=== PATIENT | female | born 1985 | race African-American/Black ===

== ENCOUNTER 2019-02-04 08:42 | Inpatient (IN) ==
[2019-02-04] MEDS ORDERED: oxyCODONE/ACETAMINOPHEN 5-325 MG TABLET PO PRN (09:07)
[2019-02-04] MEDS ORDERED: ONDANSETRON 4 MG/2 ML VIAL IV PRN (09:07)
[2019-02-04] MEDS ORDERED: LACTATED RINGERS 500 ML IV PRN (09:07)
[2019-02-04] MEDS ORDERED: MEPERIDINE 50 MG/1 ML VIAL IV PRN (09:07)
[2019-02-04 09:29] LABS: Basophils % 0.4 % (0.0-0.8); Eosinophils # 0.1 10*3/uL (0.0-0.87); Eosinophils % 0.8 % (0.00-10.9); Hematocrit 32.4 VOL% (35.7-47.0); Hemoglobin 10.8 GM/DL (12.0-16.0); Immature Granulocytes % 1.3 %; Lymphocytes # 1.5 10*3/uL (1.4-4.0); Lymphocytes % 20.6 % (21.3-54.2); Mean Corpuscular HGB Conc 33.3 GM/DL (32-36); Mean Corpuscular Volume 89.5 FL (87-102); Mean Platelet Volume 11.1 FL (9.6-12.0); Monocytes % 8.9 % (1.7-12.7); Platelet Count 169 T/CUMM (130-400); Red Blood Count 3.62 MC/CUMM (3.8-5.5); Red Cell Distribution Width 13.5 % (9.3-17.3); White Blood Count 7.4 T/CUMM (4-12)
[2019-02-04] MEDS ORDERED: OXYTOCIN/LR 20 UNIT/1,000 ML BAG IV ONE ×3 (09:35→12:25)
[2019-02-04 09:38] LABS: INR 0.9; PT Patient Result 9.3 SECS (9.6-12.2); Partial Thromboplastin Time 27.4 SECS (20.8-36.0)
[2019-02-04] MEDS ORDERED: miSOPROStoL 200 MCG TABLET ONE (09:40)
[2019-02-04] MEDS ORDERED: TRANEXAMIC ACID 1,000 MG/10 ML VIAL ONE (09:40)
[2019-02-04] MEDS ORDERED: CARBOPROST TROMETHAMINE 250 MCG/ML AMP IM ONE (09:41)
[2019-02-04] MEDS ORDERED: METHYLERGONOVINE 0.2 MG/1 ML AMP ONE (09:41)
[2019-02-04] MEDS ORDERED: OXYTOCIN 10 UNIT/ML VIAL IV ONE (09:46)
[2019-02-04 09:47] LABS: Alanine Aminotransferase 14 U/L (13-56); Albumin 2.1 G/DL (3.4-5.0); Alkaline Phosphatase 166 U/L (45-117); Aspartate Amino Transferase 11 U/L (0-37); Bilirubin,Total < 0.39 MG/DL (0.2-1.0); Blood Urea Nitrogen 9 MG/DL (7-18); Calcium 7.9 MG/DL (8.5-10.1); Estimated Glom Filtration Rate 125 ML/MIN; Glucose 104 MG/DL (74-106); Osmolality,Calculated 275.5 MOS/KG (273-304); Total Protein 5.8 G/DL (6.4-8.3)
[2019-02-04 09:54] LABS: Apearance,Urine Slightly Hazy (Clear); Bacteria,Urine Occasional /HPF (Few); Bilirubin,Urine Negative (Negative); Blood, Urine Moderate mg/dL (Negative); Glucose,Urine (UA) 50 mg/dL (Negative); Ketones,Urine Negative (Negative); Mucus,Urine Occasional /LPF (Occasional); Nitrite,Urine Negative (Negative); Protein,Urine Negative; RBC,Urine 7 /HPF (0-4); Squamous Epithelial Cell,Urine Occasional /HPF (0-10); Urine Color Yellow (Yellow); Urine Specific Gravity 1.025 (1.001-1.035); Urine Urobilinogen < 2.0 EU/DL (0.2-1.0); WBC,Urine 27 /HPF (0-6)
[2019-02-04] MEDS: LACTATED RINGERS 1,000 ML IV SCH (10:08)
[2019-02-04 10:41] LABS: HIV Antigen/Antibody Result Nonreactive (Nonreactive); Hepatitis B Surface Ag Quant < 0.10 Index; Hepatitis B Surface Ag Result Negative (Negative); Rubella Antibody IgG 16.7 IU/ML
[2019-02-04] MEDS ORDERED: LIDOCAINE 1% 50 ML VIAL ONE (10:42)
[2019-02-04 11:11] LABS: Cord Venous Blood HCO3 25.7 MMOL/L; Cord Venous Blood PCO2 37.3 MMHG; Cord Venous Blood PO2 36.6
[2019-02-04 11:49] LABS: Barbiturates Screen,Urine Negative (Negative); Benzodiazepines Screen,Urine Negative (Negative); Cannabinoid Screen,Urine Positive (Negative); Opiate Screen,Urine Negative (Negative); Phencyclidine Screen,Urine Negative (Negative)
[2019-02-04] MEDS ORDERED: hydrALAZINE 20 MG/1 ML VIAL IV ONE ×2 (11:57→13:17)
[2019-02-04] MEDS ORDERED: NIFEdipine 10 MG CAPSULE PO SCH (12:00)
[2019-02-04] MEDS ORDERED: MAGNESIUM SULF RIDER 100 ML IV ONE (13:17)
[2019-02-04] MEDS: MAGNESIUM SULF DRIP 40 GM/1,000 ML ML IV SCH (14:50)
[2019-02-04] MEDS ORDERED: DOCUSATE SODIUM 100 MG CAPSULE PO PRN (20:34)
[2019-02-04] MEDS: DOCUSATE SODIUM 100 MG CAPSULE PO SCH (21:02)
[2019-02-04] MEDS ORDERED: ACETAMINOPHEN 325 MG TABLET PO PRN (21:42)
[2019-02-05] MEDS: LACTATED RINGERS 1,000 ML IV SCH ×2 (02:16→02:17)
[2019-02-05 07:55] LABS: Basophils # 0.1 10*3/uL (0.0-0.2); Basophils % 0.5 % (0.0-0.8); Eosinophils # 0.1 10*3/uL (0.0-0.87); Hematocrit 35.8 VOL% (35.7-47.0); Immature Granulocytes Absolute 0.13 #; Lymphocytes # 2.4 10*3/uL (1.4-4.0); Lymphocytes % 18.8 % (21.3-54.2); Mean Corpuscular HGB Conc 33.5 GM/DL (32-36); Mean Corpuscular Volume 89.3 FL (87-102); Mean Platelet Volume 11.6 FL (9.6-12.0); Monocytes % 7.2 % (1.7-12.7); Neutrophils % 71.5 % (38.7-73.9); Platelet Count 210 T/CUMM (130-400); Red Blood Count 4.01 MC/CUMM (3.8-5.5); Red Cell Distribution Width 13.6 % (9.3-17.3); White Blood Count 12.9 T/CUMM (4-12)
[2019-02-05] MEDS ORDERED: IBUPROFEN 800 MG TABLET PO PRN (08:28)
[2019-02-05] MEDS: DOCUSATE SODIUM 100 MG CAPSULE PO SCH (08:50)
[2019-02-05] MEDS: MAGNESIUM SULF DRIP 40 GM/1,000 ML ML IV SCH (08:54)
[2019-02-05] MEDS ORDERED: INFLUENZA VIRUS VACCINE 0.5 ML SYRINGE IM ONE (09:54)
[2019-02-05] MEDS ORDERED: MAGNESIUM HYDROXIDE SUSP 30 ML UDCUP PO PRN (14:58)
[2019-02-05] MEDS ORDERED: BISACODYL 10 MG SUPP RECTAL PRN (14:58)
[2019-02-05] MEDS ORDERED: NAPROXEN 500 MG TABLET PO PRN (16:10)
[2019-02-05 17:07] VITALS: BP 139/97
[2019-02-05] MEDS ORDERED: NIFEdipine 10 MG CAPSULE PO SCH (21:00)
[2019-02-05] MEDS ORDERED: QUEtiapine XR 50 MG TABLET PO SCH (21:00)
[2019-02-05] MEDS ORDERED: DOCUSATE SODIUM 100 MG CAPSULE PO SCH (21:00)
[2019-02-06] MEDS ORDERED: FLUoxetine 20 MG CAPSULE PO SCH (09:00)
== END 2019-02-05 19:08 | disposition left against medical advice (07) | DRG 560 ==
LOC: N.LDOUT 08:42 → N.LD 08:45 → N.OB 02-05 16:07
PROVIDERS: ADMIT Obstetrics & Gynecology; ATTEND Obstetrics & Gynecology

== ENCOUNTER 2020-01-11 02:40 | Observation (INO) ==
[2020-01-11] MEDS ORDERED: SODIUM CHLORIDE 0.9% 500 ML IV STA (02:55)
[2020-01-11] MEDS ORDERED: SODIUM CHLORIDE 0.9% 1,000 ML IV STA (04:35)
[2020-01-11 04:37] LABS: Basophils % 0.3 % (0.0-0.8); Eosinophils # 0.3 10*3/uL (0.0-0.87); Eosinophils % 2.1 % (0.00-10.9); Hematocrit 32.8 VOL% (35.7-47.0); Hemoglobin 10.9 GM/DL (12.0-16.0); Immature Granulocytes % 0.6 %; Immature Granulocytes Absolute 0.07 #; Lymphocytes # 3.1 10*3/uL (1.4-4.0); Lymphocytes % 26.2 % (21.3-54.2); Mean Corpuscular HGB Conc 33.2 GM/DL (32-36); Mean Corpuscular Volume 90.1 FL (87-102); Mean Platelet Volume 9.9 FL (9.6-12.0); Monocytes % 6.6 % (1.7-12.7); Neutrophils % 64.2 % (38.7-73.9); Platelet Count 299 T/CUMM (130-400); Red Blood Count 3.64 MC/CUMM (3.8-5.5); Red Cell Distribution Width 13.3 % (9.3-17.3); White Blood Count 11.7 T/CUMM (4-12)
[2020-01-11] MEDS ORDERED: METHYLERGONOVINE 0.2 MG/1 ML AMP IM ONE (04:44)
[2020-01-11 04:45] LABS: PT Patient Result 10.9 SECS (9.8-11.9)
[2020-01-11 05:06] LABS: Alanine Aminotransferase < 9 U/L (13-56); Albumin 2.5 G/DL (3.4-5.0); Alkaline Phosphatase 54 U/L (45-117); Aspartate Amino Transferase 14 U/L (0-37); Bilirubin,Total < 0.39 MG/DL (0.2-1.0); Blood Urea Nitrogen 8 MG/DL (7-18); Calcium 8.2 MG/DL (8.5-10.1); Estimated Glom Filtration Rate 82 ML/MIN; Glucose 178 MG/DL (74-106); Osmolality,Calculated 274.8 MOS/KG (273-304); Total Protein 6.3 G/DL (6.4-8.3)
[2020-01-11] MEDS ORDERED: BISACODYL 10 MG SUPP RECTAL PRN (06:05)
[2020-01-11] MEDS ORDERED: SODIUM CHLORIDE 0.9% 1,000 ML IV SCH (06:05)
[2020-01-11] MEDS ORDERED: ONDANSETRON 4 MG/2 ML VIAL IV PRN (06:05)
[2020-01-11] MEDS ORDERED: ACETAMINOPHEN 325 MG TABLET PO PRN (06:05)
[2020-01-11] MEDS ORDERED: ACETAMINOPHEN/CODEINE 300-30 MG TABLET PO PRN (06:05)
[2020-01-11] MEDS ORDERED: MAGNESIUM HYDROXIDE SUSP 30 ML UDCUP PO PRN (06:05)
[2020-01-11] MEDS ORDERED: LACTATED RINGERS 1,000 ML IV SCH (07:00)
[2020-01-11] MEDS ORDERED: INFLUENZA VIRUS VACCINE 0.5 ML SYRINGE IM ONE (07:26)
[2020-01-11 08:17] LABS: Basophils % 0.3 % (0.0-0.8); Eosinophils # 0.1 10*3/uL (0.0-0.87); Eosinophils % 0.5 % (0.00-10.9); Hematocrit 31.5 VOL% (35.7-47.0); Hemoglobin 10.4 GM/DL (12.0-16.0); Immature Granulocytes % 0.7 %; Immature Granulocytes Absolute 0.09 #; Lymphocytes # 1.4 10*3/uL (1.4-4.0); Lymphocytes % 10.8 % (21.3-54.2); Mean Corpuscular Volume 89.2 FL (87-102); Mean Platelet Volume 9.8 FL (9.6-12.0); Monocytes % 4.3 % (1.7-12.7); Neutrophils % 83.4 % (38.7-73.9); Platelet Count 245 T/CUMM (130-400); Red Blood Count 3.53 MC/CUMM (3.8-5.5); Red Cell Distribution Width 13.4 % (9.3-17.3); White Blood Count 12.7 T/CUMM (4-12)
[2020-01-11 08:26] LABS: PT Patient Result 10.9 SECS (9.8-11.9)
[2020-01-11] MEDS ORDERED: DOCUSATE SODIUM 100 MG CAPSULE PO SCH (09:00)
[2020-01-11] MEDS ORDERED: METHYLERGONOVINE 0.2 MG TABLET PO SCH ×2 (09:00→14:00)
[2020-01-11 13:39] LABS: Bilirubin,Urine Negative (Negative); Blood, Urine Large mg/dL (Negative); Glucose,Urine (UA) Negative (Negative); Ketones,Urine Negative (Negative); Mucus,Urine Moderate /LPF (Occasional); Nitrite,Urine Negative (Negative); Protein,Urine 100 MG/DL; RBC,Urine 3466 /HPF (0-4); Squamous Epithelial Cell,Urine Occasional /HPF (0-10); Urine Appearance Slightly Hazy (Clear); Urine Color Red (Yellow); Urine Specific Gravity 1.012 (1.001-1.035); Urine Urobilinogen < 2.0 EU/DL (0.2-1.0); WBC,Urine 124 /HPF (0-6)
[2020-01-11 13:55] LABS: Barbiturates Screen,Urine Negative (Negative); Benzodiazepines Screen,Urine Negative (Negative); Cannabinoid Screen,Urine Positive (Negative); Opiate Screen,Urine Negative (Negative); Phencyclidine Screen,Urine Negative (Negative)
[2020-01-11 15:29] VITALS: BP 110/70
== END 2020-01-11 16:30 | disposition home or self-care (01) ==
LOC: N.ED 02:40 → N.EDINP 02:40 → N.OB 05:32
PROVIDERS: ADMIT Obstetrics & Gynecology; ATTEND Obstetrics & Gynecology